=== PATIENT | female | born 1975 | race Two or more races ===

== ENCOUNTER 2018-05-21 17:14 | Emergency (ER) | payer OTHER ==
[~2018-05-21] VITALS: Ht 165.1 cm; Wt 95.3 kg
[~2018-05-21 17:14] MED LIST: LISINOPRIL10 MG
[2018-05-21] MEDS ORDERED: METFORMIN HYDRO25 G1 (17:51)
== END 2018-05-21 21:55 | disposition home or self-care (01) ==
LOC: ER 17:14
DX: J11.1 Influenza due to unidentified influenza virus with other respiratory manifestations (principal); J06.9 Acute upper respiratory infection, unspecified